=== PATIENT | male | born 1980 | race Caucasian/White ===

== ENCOUNTER 2023-03-06 16:06 | Observation (INO) | payer OTHER ==
[2023-03-06] MEDS ORDERED: SODIUM CHLORIDE 0.9% 500 ML 500 ML IV STA (16:26)
[2023-03-06] MEDS ORDERED: ASPIRIN 81 MG PO STA (16:26)
[2023-03-06 17:00] LABS: Basophils % (A) 0 %; Eosinophils # (A) 0.2 k/uL (0-0.7); Eosinophils % (A) 2 %; HCT 44.6 % (39.0-53.0); HGB 15.2 gm/dL (13.0-17.5); Lymphocytes # (A) 1.7 k/uL (1.0-4.8); Lymphocytes % (A) 24 %; MCH 30.3 pg (25.0-35.0); MCHC 34.1 g/dL (31.0-37.0); Mean Platelet Volume 7.1; Monocytes # (A) 0.4 k/uL (0-1.0); Monocytes % (A) 5 %; Neutrophils # (A) 4.6 k/uL (1.3-7.7); Neutrophils % (A) 66 %; Platelet Count 262 k/uL (150-450); RBC 5.01 m/uL (4.30-5.90); RDW 12.6 % (11.5-15.5); WBC 6.9 k/uL (3.8-10.6)
[2023-03-06 17:10] LABS: Partial Thromboplastin Time 27.4 sec (22.0-30.0); Prothrombin Time 11.1 sec (10.0-12.5)
[2023-03-06 17:14] LABS: ALT 29 U/L (4-49); AST 26 U/L (17-59); African American GFR (CKD) >90 (>60 ml/min/1.73 sqM); Albumin 4.3 g/dL (3.5-5.0); Alkaline Phosphatase 60 U/L (38-126); Amylase 61 U/L (30-110); Anion Gap 9 mmol/L; Blood Urea Nitrogen 18 mg/dL (9-20); Calcium 9.3 mg/dL (8.4-10.2); Carbon Dioxide 29 mmol/L (22-30); Chloride 100 mmol/L (98-107); Glucose 107 mg/dL (74-99); Lipase 87 U/L (23-300); Magnesium 1.9 mg/dL (1.6-2.3); Non-African American GFR(CKD) >90 (>60 ml/min/1.73 sqM); Potassium 3.6 mmol/L (3.5-5.1); Sodium 138 mmol/L (137-145); Total Bilirubin 0.8 mg/dL (0.2-1.3); Total Protein 7.1 g/dL (6.3-8.2)
--- NOTE | 2023-03-06 17:21 | XR ---
EXAMINATION TYPE: XR chest 2V DATE OF EXAM: 03/06/2023 COMPARISON: None INDICATION: Chest pain TECHNIQUE: Frontal and lateral views of the chest are obtained. FINDINGS: The heart size is normal. The pulmonary vasculature is normal. The lungs are clear. IMPRESSION: 1. No acute pulmonary process.
[2023-03-06] MEDS ORDERED: NALOXONE 0.4 MG/ML 1 ML VIAL IV PRN (17:59)
--- NOTE | 2023-03-06 18:09 | ED ---
Chest Pain HPI - General Chief Complaint: Chest Pain Stated Complaint: Chest Pain Time Seen by Provider: 03/06/23 16:18 Source: patient Mode of arrival: ambulatory Limitations: no limitations - History of Present Illness Initial Comments: 42-year-old male presenting with chief complaint of chest pain. Patient states that for several days he has had burning epigastric pain which she attributed to GERD. He has been taking his omeprazole without relief. Today the burning sensation and traveled into his chest up his neck and into his teeth. Pain is i ntermittent. Patient is not a smoker. No history of hypertension, hyperlipidemia, or diabetes. Patient does have family history of heart disease. No alleviating or aggravating factors. No nausea, vomiting, shortness of breath, palpitations, numbness, tingling, weakness. - Related Data Home Medications Medication Instructions Recorded Confirmed Omeprazole 20 mg PO DAILY 03/06/23 03/06/23 Allergies Allergy/AdvReac Type Severity Reaction Status Date / Time No Known Allergies Allergy Verified 03/06/23 18:17 Review of Systems ROS Statement: Those systems with pertinent positive or pertinent negative responses have been documented in the HPI. ROS Other: All systems not noted in ROS Statement are negative. EKG Findings - EKG Comments: EKG Findings:: Sinus rhythm ventricular rate 67. RI interval 204. QRS 126. Q- T 378. QTC 394. Past Medical History Past Medical History: No Reported History, Eye Disorder Additional Past Medical History / Comment(s): Cataracts, retina issues History of Any Multi-Drug Resistant Organisms: None Reported Additional Past Surgical History / Comment(s): cataract surgery Past Psychological History: No Psychological Hx Reported Smoking Status: Never smoker Past Alcohol Use History: Occasional Past Drug Use History: None Reported General Exam Limitations: no limitations General appearance: alert, in no apparent distress Head exam: Present: atraumatic, normocephalic, normal inspection Eye exam: Present: normal appearance, EOMI Neck exam: Present: normal inspection, full ROM Respiratory exam: Present: normal lung sounds bilaterally. Absent: respiratory distress, wheezes, rales, rhonchi, stridor Cardiovascular Exam: Present: regular rate, normal rhythm, normal heart sounds. Absent: systolic murmur, diastolic murmur, rubs, gallop, clicks Extremities exam: Present: normal inspection. Absent: pedal edema Neurological exam: Present: alert, oriented X3 Psychiatric exam: Present: normal affect, normal mood Skin exam: Present: warm, dry, intact, normal color. Absent: rash Course Vital Signs 03/06/23 03/06/23 16:11 19:40 Temperature 98.5 F Pulse Rate 77 67 Respiratory 18 18 Rate Blood Pressure 153/103 134/89 O2 Sat by Pulse 97 98 Oximetry Chest Pain MDM - MDM Was pt. sent in by a medical professional or institution (ANIA Cramer, HEAD OF IT, urgent care, hospital, or [facility]...) When possible be specific @ -No Did you speak to anyone other than the patient for history (EMS, parent, family, police, friend...)? What history was obtained from this source @ -No Did you review nursing and triage notes (agree or disagree)? Why? @ -I reviewed and agree with nursing and triage notes Were old charts reviewed (outside hosp., previous admission, EMS record, old EKG, old radiological studies, urgent care reports/EKG's, [facility] records)? Report findings @ -No old charts were reviewed Differential Diagnosis (chest pain, altered mental status, abdominal pain women, abdominal pain men, vaginal bleeding, weakness, fever, dyspnea, syncope, headache, dizziness, GI bleed, back pain, seizure, CVA, palpatations, mental health, musculoskeletal)? @ -[facility] Differential Chest Pain: Stable Angina, Unstable Angina, STEMI, NSTEMI Aortic Dissection, Pneumothorax, Musculoskeletal, Esophageal Spasm GERD, Cholecystitis, Pancreatitis, Zoster This is not meant to be an all-inclusive list. EKG interpreted by me (3pts min.). @ -As above X-rays interpreted by me (1pt min.). @ -Chest X-ray shows no acute process CT interpreted by me (1pt min.). @ -None done U/S interpreted by me (1pt. min.). @ -None done What testing was considered but not performed or refused? (CT, X-rays, U/S, labs)? Why? @ -None What meds were considered but not given or refused? Why? @ -None Did you discuss the management of the patient with other professionals (professionals i.e. ANIA Cramer, HEAD OF IT, lab, RT, psych nurse, social work supervisor, spoon maker, teacher, credit control officer, disease case manager rn)? Give summary @ -I spoke with Dr. Frye who accepted admission Was smoking cessation discussed for >3mins.? @ -No Was critical care preformed (if so, how long)? @ -No Were there social determinants of health that impacted care today? How? (Homelessness, low income, unemployed, alcoholism, drug addiction, transporta tion, low edu. Level, literacy, decrease access to med. care, detention, rehab)? @ -No Was there de-escalation of care discussed even if they declined (Discuss DNR or withdrawal of care, Hospice)? DNR status @ -No What co-morbidities impacted this encounter? (DM, HTN, Smoking, COPD, CAD, Cancer, CVA, ARF, Chemo, Hep., AIDS, mental health diagnosis, sleep apnea, morbid obesity)? @ -None Was patient admitted / discharged? Hospital course, mention meds given and route, prescriptions, significant lab abnormalities, going to OR and other pertinent info. @ -42-year-old male presenting with chief complaint of burning epigastric pain with radiation into the chest as well as into the jaw and teeth. History and physical are conducted. Workup is essentially negative. Given the character of this pain patient will be admitted for observation with evaluation by cardiology in the morning. Patient is agreeable to this plan. I discussed this case with my attending Dr. Perez. Undiagnosed new problem with uncertain prognosis? @ -No Drug Therapy requiring intensive monitoring for toxicity (Heparin, Nitro, Insulin, Cardizem)? @ -No Were any procedures done? @ -No Diagnosis/symptom? @ -Chest pain Acute, or Chronic, or Acute on Chronic? @ -Acute Uncomplicated (without systemic symptoms) or Complicated (systemic symptoms)? @ -Complicated Side effects of treatment? @ -No Exacerbation, Progression, or Severe Exacerbation? @ -No Poses a threat to life or bodily function? How? (Chest pain, [place], [place], pneumonia, PE, COPD, DKA, ARF, appy, cholecystitis, CVA, Diverticulitis, Homicidal, Suicidal, threat to staff... and all critical care pts) @ -yes Disposition Clinical Impression: Chest pain Disposition: ADMITTED IP TO THIS [facility] Condition: Fair Time of Disposition: 18:09
[2023-03-06 22:48] VITALS: RESP 16
[2023-03-07] MEDS ORDERED: ONDANSETRON 4 MG/2 ML VIAL IVP PRN (01:40)
[2023-03-07] MEDS ORDERED: MELATONIN 3 MG TABLET PO PRN (01:40)
[2023-03-07] MEDS ORDERED: ACETAMINOPHEN TAB 325 MG TAB PO PRN (01:40)
[2023-03-07] MEDS ORDERED: ALPRAZolam 0.25 MG TAB PO PRN (01:40)
[2023-03-07] MEDS ORDERED: MAG HYDROX/AL HYDROX/SIMETH 30 ML CUP PO PRN (01:40)
--- NOTE | 2023-03-07 01:43 | P.HPIM ---
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 It was not associated with any nausea vomiting profuse sweating dizziness lightheadedness palpitations or shortness of breath. Patient grew concerned and said to come the hospital to get checked. He denies any recent travel her hospital stay denies any history of blood clots he denies any cardiac history he denies any history of cardiac workup. He denies any known sick contact denies any upper respiratory infection symptoms. Patient does report history of heart disease and has paternal grandpa Denies tobacco smoking illicit drugs or heavy alcohol review of systems Pertinent positives as noted in HPI. All other systems were reviewed and are negative on exam Constitutional: No acute distress, conversant, pleasant Eyes: Anicteric sclerae, moist conjunctiva, Pupils equal round reactive to light ENMT: NC/AT Oropharynx clear, no erythema, or exudates Neck: Supple, no masses, or JVD No carotid bruits No thyromegaly Lungs: Clear to auscultation Clear to percussion Normal respiratory effort, no accessory muscle use Cardiovascular: Heart regular in rate and rhythm, No murmurs, gallops, or rubs No peripheral edema Abdominal: Soft Nontender, no guarding, rebound or rigidity Abdomen moving with respiration Normoactive bowel sounds No hepatomegaly, No splenomegaly No palpable mass No abdominal wall hernia noted Extremities: No digital cyanosis No clubbing Pedal pulses intact and symmetrical Radial pulses intact and symmetrical No calf tenderness Psychiatric: Alert and oriented to person, place and time Appropriate affect fair judgement Neuro Muscles Strength 5/5 in all 4 extremities Sensation to light touch grossly present throughout Cranial nerves II-XII grossly intact Lymphatics: no palpable cervical or supraclavicular lymph nodes Past Medical History Past Medical History: No Reported History, Eye Disorder Additional Past Medical History / Comment(s): Cataracts, retina issues History of Any Multi-Drug Resistant Organisms: None Reported Additional Past Surgical History / Comment(s): cataract surgery Past Psychological History: No Psychological Hx Reported Smoking Status: Never smoker Past Alcohol Use History: Occasional Past Drug Use History: None Reported Medications and Allergies Home Medications Medication Instructions Recorded Confirmed Type Omeprazole 20 mg PO DAILY 03/06/23 03/06/23 History Allergies Allergy/AdvReac Type Severity Reaction Status Date / Time No Known Allergies Allergy Verified 03/06/23 18:17 Physical Exam Vitals: Vital Signs Temp Pulse Pulse Resp BP BP Pulse Ox 03/06/23 21:34 97.8 F 60 16 146/86 98 03/06/23 19:40 67 18 134/89 98 03/06/23 16:11 98.5 F 77 18 153/103 97 Intake and Output 03/06/23 03/06/23 03/07/23 14:59 22:59 06:59 Other: # Voids 1 Weight 90.718 kg Results CBC & Chem 7: 03/06/23 16:54 03/06/23 16:54 Labs: Abnormal Lab Results - Last 24 Hours (Table) 03/06/23 Range/Units 16:54 Glucose 107 H (74-99) mg/dL Thrombosis Risk Factor Assmnt - Choose All That Apply Any of the Below Risk Factors Present?: Yes Each Factor Represents 1 point: Age 41-60 years, Obesity (BMI >25) Other Risk Factors: No Other congenital or acquired thrombophilia - If yes, enter type in comment: No Thrombosis Risk Factor Assessment Total Risk Factor Score: 2 Thrombosis Risk Factor Assessment Level: Low Risk Assessment and Plan Assessment: 42-year-old female no significant past medical history coming in with retrosternal chest pressure concerns regarding underlying cardiac disease I discussed the case with the ED doctor accepted the admission for atypical chest pain with anticipated length of stay less than 2 midnights Atypical chest pain Troponin negative 2, continue to trend EKG no acute ST changes Cardiac consult Vital signs stable Cardiac monitoring Aspirin 81 mg daily by mouth Check lipid profile Check A1c Chest x-ray shows no acute pathology Blood work unremarkable lumen 15.2 white count 6.9 Sodium 138 potassium 3.6 BUN 18 creatinine 0.86 Full code DVT prophylaxis Lovenox 40 mg subcu daily GI prophylaxis 40 mg Protonix by mouth daily
[2023-03-07] MEDS: PANTOPRAZOLE 40 MG TABLET PO SCH (05:38)
[2023-03-07] MEDS: ASPIRIN 81 MG PO SCH (08:14)
[2023-03-07] MEDS: ENOXAPARIN 40 MG/0.4 ML SYRINGE SQ SCH (08:14)
[2023-03-07 09:52] LABS: Chol/HDL Ratio 3.89 Ratio; LDL Cholesterol,Calculated 102.6 mg/dL (0.0-131.0); VLDL Calculation 19.96 mg/dL (5.00-40.00)
--- NOTE | 2023-03-07 14:13 | P.PN ---
Subjective Progress Note Date: 03/07/23 42-year-old male no significant past medical history Patient coming in complaining of several days of epigastric abdominal pain which he thought was heartburn. However today he felt the pain extending upwards retrosternally felted like pressure. It was not associated with any nausea, vomiting, profuse sweating, lightheadedness, palpitations or shortness of breath. CO in his grandfather in his 50s. Does not smoker cigarettes. In the ED he underwent extensive evaluation: Vital signs stable. CBC unremarkable. INR 1.0. CMP glu 107. Troponin < 0.012. Amylase and Lipase negative. EKG sinus rhythm. Admitted for chest pain, rule out ACS, Cardiology consultation. 03/07 Patient was seen and examined. Reports persistent chest discomfort that improves with movement and activity. Troponin < 0.012 x 3. A1c 5.1. Lipid panel LDL 102.6. Pending cardiology evaluation. General: non toxic, no distress, appears at stated age Derm: warm, dry Head: atraumatic, normocephalic, symmetric Eyes: EOMI, no lid lag, anicteric sclera Mouth: no lip lesion Cardiovascular: S1S2 reg, no murmur Lungs: CTA bilateral, no rhonchi, no rales , no accessory muscle use Ext: no gross muscle atrophy, no edema, no contractures Neuro: no focal neuro deficits Psych: Alert, oriented, appropriate affect Based on my assessment of this patient, this patient meets a moderate complexity level of care. Patient has a new diagnosis of chest pain with uncertain prognosis. Atypical chest pain: Troponins trended, ACS ruled out. ASA 81 mg PO QD. Telemetry monitoring. Cardiology consulted. CODE STATUS: FULL CODE DVT Prophylaxis: Lovenox GI Prophylaxis: Protonix Designated medical POA if patient is not able to make medical decisions for themselves: I have reviewed the following systems consultant notes: I have reviewed the results of the following tests: A1c. Lipid panel. Trop I have ordered the following tests: Echo. I have discussed the care of this patient with the following independent historian: I have independently interpreted the following test below: I have discussed the management of this patient with the following physician: Objective - Vital Signs Vital signs: Vital Signs Temp 97.5 F L 03/07/23 07:00 Pulse 58 L 03/07/23 07:00 Resp 16 03/07/23 07:00 BP 131/89 03/07/23 07:00 Pulse Ox 99 03/07/23 07:00 FiO2 Intake & Output 03/06/23 03/07/23 03/07/23 18:59 06:59 18:59 Weight 90.718 kg Other: # Voids 1 3 # Bowel Movements 0 - Labs CBC & Chem 7: 03/06/23 16:54 03/06/23 16:54 Labs: Abnormal Lab Results - Last 24 Hours (Table) 03/06/23 Range/Units 16:54 Glucose 107 H (74-99) mg/dL
--- NOTE | 2023-03-07 17:35 | P.CRDCN ---
History of Present Illness Consult date: 03/07/23 History of present illness: HISTORY OF PRESENTING ILLNESS 42-year-old with no significant past medical history and not taking any medications. He denies any smoking history, regress her to use history R any heavy alcohol use history. He denies any family history of premature coronary artery disease or sudden cardiac . Patient reports for last 3 weeks he has been next. In setting on and off epigastric and lower chest heaviness and acid reflux symptoms. He has been taking omeprazole which was initially helping but lately his symptoms have not been getting better. 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 His ECG shows sinus rhythm with no significant ST-T wave changes diagnostic for ischemia next and he is hemodynamics stable with normal blood pressure and heart rate, BP 130/70, heart rate 56 His lab shows a creatinine 0.8, hemoglobin 15 troponin 3 was negative REVIEW OF SYSTEMS 14 point review of system is negative except what is mentioned above in HPI. PHYSICAL EXAMINATION Vital signs reviewed. Head: Normocephalic. Eyes: Sclerae nonicteric. Neck: Brisk carotid upstroke, no jugular venous distention. Lungs: Clear to auscultation. Heart: Regular rate and rhythm, S1-S2, no S3, no murmur or rub. Abdomen: Soft nontender, positive bowel sounds no organomegaly. Extremities: No edema, intact distal pulses. Neuro: Alert, oritented, no focal deficits ASSESSMENT Atypical chest pain Intermediate pretest probability for coronary artery disease due to patient's age LDL 102, HDL 42, TG 165 PLAN Obtain a treadmill stress echocardiogram Obtain resting echocardiogram Based on the results with give further recommendations. If test is normal, patient is cleared to be discharged from cardiac vessel standpoint. Recommend once outpatient follow-up with Dr. Braxton to go over the symptomatology and resukts Past Medical History Past Medical History: No Reported History, Eye Disorder Additional Past Medical History / Comment(s): Cataracts, retina issues History of Any Multi-Drug Resistant Organisms: None Reported Additional Past Surgical History / Comment(s): cataract surgery Past Psychological History: No Psychological Hx Reported Smoking Status: Never smoker Past Alcohol Use History: Occasional Past Drug Use History: None Reported Medications and Allergies Home Medications Medication Instructions Recorded Confirmed Type Omeprazole 20 mg PO DAILY 03/06/23 03/06/23 History Allergies Allergy/AdvReac Type Severity Reaction Status Date / Time No Known Allergies Allergy Verified 03/06/23 18:17 Physical Exam Vitals: Vital Signs Temp Pulse Pulse Resp BP BP Pulse Ox 03/07/23 14:38 98.0 F 58 L 16 137/83 97 03/07/23 07:00 97.5 F L 58 L 16 131/89 99 03/07/23 02:00 63 16 127/79 98 03/07/23 01:22 16 03/06/23 21:34 97.8 F 60 16 146/86 98 03/06/23 19:40 67 18 134/89 98 Intake and Output 03/07/23 03/07/23 03/07/23 06:59 14:59 22:59 Other: # Voids 1 3 # Bowel Movements 0 Results 03/06/23 16:54 03/06/23 16:54 Cardiac Enzymes 03/06/23 03/07/23 Range/Units 21:11 00:17 Troponin I <0.012 <0.012 (0.000-0.034) ng/mL Lipids 03/07/23 Range/Units 06:28 Triglycerides 99.80 (0.00-149.00) mg/dL Cholesterol 165.00 (0.00-200.00) mg/dL HDL Cholesterol 42.40 (40.00-60.00) mg/dL Cholesterol/HDL Ratio 3.89 Ratio Current Medications Generic Name Dose Route Start Last Admin Trade Name Freq PRN Reason Stop Dose Admin Acetaminophen 650 mg 03/07/23 01:40 Acetaminophen Tab 325 Mg Tab PO Q6HR PRN Mild Pain or Fever > 100.5 Al Hydroxide/Mg Hydroxide 15 ml 03/07/23 01:40 Mag Hydrox/Al Hydrox/Simeth 30 Ml Cup PO Q6HR PRN Indigestion Alprazolam 0.25 mg 03/07/23 01:40 Alprazolam 0.25 Mg Tab PO Q6HR PRN Anxiety Aspirin 81 mg 03/07/23 09:00 03/07/23 08:14 Aspirin 81 Mg PO 81 mg DAILY AR Administration Enoxaparin Sodium 40 mg 03/07/23 09:00 03/07/23 08:14 Enoxaparin 40 Mg/0.4 Ml Syringe SQ 40 mg DAILY AR Administration Melatonin 3 mg 03/07/23 01:40 Melatonin 3 Mg Tablet PO HS PRN Insomnia Naloxone HCl 0.2 mg 03/06/23 17:59 Naloxone 0.4 Mg/Ml 1 Ml Vial IV Q2M PRN Opioid Reversal Ondansetron HCl 4 mg 03/07/23 01:40 Ondansetron 4 Mg/2 Ml Vial IVP Q8HR PRN Nausea And Vomiting Pantoprazole Sodium 40 mg 03/07/23 07:30 03/07/23 05:38 Pantoprazole 40 Mg Tablet PO 40 mg [id number] AR Administration Intake and Output 03/07/23 03/07/23 03/07/23 06:59 14:59 22:59 Other: # Voids 1 3 # Bowel Movements 0 03/06/23 16:54 03/06/23 16:54
[2023-03-08] MEDS: PANTOPRAZOLE 40 MG TABLET PO SCH (06:24)
[2023-03-08] MEDS: ASPIRIN 81 MG PO SCH (07:59)
[2023-03-08] MEDS: ENOXAPARIN 40 MG/0.4 ML SYRINGE SQ SCH (07:59)
[2023-03-08 08:54] VITALS: BP 155/92; PULSE 59; TEMP 97.6
--- NOTE | 2023-03-08 10:46 | P.PN ---
Subjective HISTORY OF PRESENT ILLNESS: This is a 42-year-old male with no significant past medical history. Patient is admitted to the hospital secondary to chest pain. Patient examined this morning at the bedside. Patient denies any shortness of breath. He reports some mild discomfort on the left side of his ribs. Vital signs are stable. He is scheduled to undergo stress echocardiogram today. PHYSICAL EXAM: VITAL SIGNS: Reviewed. GENERAL: Well-developed in no acute distress. NECK: Supple. No JVD or thyromegaly LUNGS: Respirations even and unlabored. Lungs essentially clear to auscultation bilaterally. HEART: Regular rate and rhythm. S1 and S2 heard. EXTREMITIES: Normal range of motion. No clubbing or cyanosis. Peripheral pulses intact. No lower extremity edema ASSESSMENT: Chest pain, troponins negative 3 PLAN: Continue current cardiac medications 2-D echo has been ordered. Await results Patient to undergo stress echocardiogram today If negative, the patient may be discharged home today from a cardiac standpoint Nurse practitioner note has been reviewed by physician. Signing provider agrees with the documented findings, assessment, and plan of care. Objective - Vital Signs Vital signs: Vital Signs Temp 97.6 F 03/08/23 07:00 Pulse 59 L 03/08/23 07:00 Resp 16 03/08/23 07:00 BP 155/92 03/08/23 07:00 Pulse Ox 99 03/08/23 07:00 FiO2 Intake & Output 03/07/23 03/08/23 03/08/23 18:59 06:59 18:59 Other: # Voids 3 1 # Bowel Movements 0 - Labs CBC & Chem 7: 03/06/23 16:54 03/06/23 16:54
--- NOTE | 2023-03-08 11:40 | CA ---
Transthoracic Echo Report Name: Celio Sosa Age: 42 Gender: M : 1980 Exam Date: 03/08/2023 09:31 Exam Location: [place] [facility] Ht (in): 69 Wt (lb): 200 Ordering Physician: Romain Braxton MD ([id number]) Attending/Referring Phys: Marble Machine Operator Pam Bacon [facility] Procedure CPT: Indications: Chest Pain Cardiac Hx: Technical Quality: Fair Contrast 1: Total Dose (mL): Contrast 2: Total Dose (mL): MEASUREMENTS (Male / Female) Normal Values 2D ECHO LV Diastolic Diameter PLAX 5.0 cm 4.2 - 5.9 / 3.9 - 5.3 cm LV Systolic Diameter PLAX 3.7 cm IVS Diastolic Thickness 1.0 cm 0.6 - 1.0 / 0.6 - 0.9 cm LVPW Diastolic Thickness 1.0 cm 0.6 - 1.0 / 0.6 - 0.9 cm LV Relative Wall Thickness 0.4 M-MODE Aortic Root Diameter MM 2.7 cm LA Systolic Diameter MM 3.8 cm LA Ao Ratio MM 1.4 AV Cusp Separation MM 2.4 cm DOPPLER AV Peak Velocity 114.4 cm/s AV Peak Gradient 5.2 mmHg AV Mean Velocity 85.5 cm/s AV Mean Gradient 3.1 mmHg AV Velocity Time Integral 26.0 cm LVOT Peak Velocity 101.6 cm/s LVOT Peak Gradient 4.1 mmHg LVOT Velocity Time Integral 22.1 cm Mitral E Point Velocity 52.7 cm/s Mitral A Point Velocity 60.4 cm/s Mitral E to A Ratio 0.9 MV Deceleration Time 208.7 ms LV E' Lateral Velocity 11.2 cm/s Mitral E to LV E' Lateral Ratio 4.7 LV E' Septal Velocity 11.6 cm/s Mitral E to LV E' Septal Ratio 4.6 TR Peak Velocity 205.2 cm/s TR Peak Gradient 16.8 mmHg Right Atrial Pressure 3.0 mmHg Pulmonary Artery Systolic Pressu 19.8 mmHg Right Ventricular Systolic Press 19.8 mmHg FINDINGS Left Ventricle Left ventricular wall thickness at upper limits of normal. Left ventricular cavity size normal. Low normal left ventricular systolic function. Left ventricular ejection fraction is estimated at 50-55%. Hypokinetic inferior wall. Hypokinetic basal inferoseptum. Right Ventricle Moderate right ventricular dilatation. Right Atrium Severe right atrial dilatation. Left Atrium Left atrial size at the upper limits of normal. Mitral Valve Structurally normal mitral valve. No mitral regurgitation. Aortic Valve Trileaflet aortic valve. No aortic regurgitation. Tricuspid Valve Structurally normal tricuspid valve. Trace tricuspid regurgitation. Pulmonic Valve Structurally normal pulmonic valve. Trace pulmonic regurgitation. Pericardium No pericardial effusion. Aorta Normal size aortic root. CONCLUSIONS Normal LV systolic function Previewed by: Dr. Mian Horn MD (Electronically Signed) Final Date: 08 March 2023 11:40
--- NOTE | 2023-03-08 11:42 | CA ---
Stress Echo Report Celio Sosa Age: 42 Gender: M : 1980 Exam Date: 03/08/2023 09:42 Exam Location: [facility] Ht (in): 69 Wt (lb): 200 Ordering Physician: Romain Braxton MD ([id number]) Referring Physician: Uday, Welder And Fitter: Pam LARA Technologist Procedure CPT: Indication: Chest Pain ICD-9 Codes: Rhythm: Patient History: CHEST PAIN Cardiac Medications: Medications in past 24 hours: Contrast: Stress Results Protocol: Tyler Total dose(mL): Exercise Duration (min:sec): 13:[address] Depression (mm): Angina Score: Pryor Score: METS: 13.3 Resting HR: 90 Resting BP: 131 / 84 Peak HR: 171 Peak BP: 209 / 102 Max Predicted HR: 176 97 % Max Predicted HR Target HR: 150 Double Product: [id number] Stress Summary: BP Response: Reason for Termination: MAX EXERTION/TARGET HR Cardiac Symptoms: NO SYMPTOMS ECG Analysis Resting ECG: Stress ECG: Arrhythmia: Echo Analysis Resting Echo: Peak Echo Analysis: MEASUREMENTS (Male/Female) Normal Values CONCLUSIONS Excellent exercise tolerance Normal EKG and echocardiogram in response to exercise Dr. Mian Horn MD (Electronically Signed) Final Date: 08 March 2023 11:41
--- NOTE | 2023-03-08 15:58 | P.DS ---
Providers Date of admission: 03/06/23 17:34 Expected date of discharge: 03/08/23 Attending physician: Toy Frye MD Primary care physician: Florencio Herrera Hospital Course: Atypical chest pain Hospital Course: 42-year-old male no significant past medical history presented with several days of epigastric abdominal pain which he thought was heartburn. In the ED he underwent extensive evaluation: Vital signs stable. CBC unremarkable. INR 1.0. CMP glu 107. Troponin < 0.012. Amylase and Lipase negative. EKG sinus rhythm. Admitted for chest pain, rule out ACS, Cardiology consultation. 03/07 Patient was seen and examined. Reports persistent chest discomfort that improves with movement and activity. Troponin < 0.012 x 3. A1c 5.1. Lipid panel LDL 102.6. Pending cardiology evaluation. 03/08 Patient had been seen and cleared by cardiology. Underwent stress test which was negative for reversible ischemia. D/c'd home with no medication changes. Gen: awake, alert HEENT: normocephalic, atraumatic, good hearing acuity, moist mucous membranes Resp: good air exchange, breathing comfortably with no accessory muscle use CVS: good distal perfusion x 4, GI: soft, NTTP, ND : no SPT, no CVAT, caban catheter not present MSK: no pitting edema, no clubbing Neuro: non-focal, moving all extremities Psych: cooperative, euthymic mood Patient Condition at Discharge: Good Plan - Discharge Summary Discharge Rx Participant: No New Discharge Prescriptions: New Acetaminophen Tab [Tylenol] 650 mg PO Q6HR PRN tab PRN Reason: Mild Pain Or Fever > 100.5 Continue Omeprazole 20 mg PO DAILY Discharge Medication List Omeprazole 20 mg PO DAILY 03/06/23 [History] Acetaminophen Tab [Tylenol] 650 mg PO Q6HR PRN tab 03/08/23 [Rx] Follow up Appointment(s)/Referral(s): Roger Barker DO [STAFF PHYSICIAN] - 1 Week (Please keep previously scheduled cardiology appointment.) Florencio Herrera MD [Primary Care Provider] - 1-2 days Patient Instructions/Handouts: Chest Pain (DC) Discharge Disposition: HOME SELF-CARE
== END 2023-03-08 14:32 | disposition home or self-care (01) ==
LOC: EC 16:06 → 6NMEDSUR 17:34
PROVIDERS: ADMIT Family Medicine; ATTEND Family Medicine
DX: R07.89 Other chest pain (principal); R10.13 Epigastric pain; R68.84 Jaw pain; K08.89 Other specified disorders of teeth and supporting structures; K21.9 Gastro-esophageal reflux disease without esophagitis; E66.9 Obesity, unspecified; Z68.29 Body mass index [BMI] 29.0-29.9, adult; Z79.899 Other long term (current) drug therapy; Z98.49 Cataract extraction status, unspecified eye; Z82.49 Family history of ischemic heart disease and other diseases of the circulatory system
CPT/HCPCS: 96361 ×2; 96372 ×2; 96360; 99285; 36415; 93005; 93306; 93351; 80061; 80053; 82150; 83690; 83735; 84484 ×2; 85025; 85610; 85730; 83036; 71046; G0378 ×3; J1650 ×2

== ENCOUNTER → 2023-03-16 | Outpatient (CLI) | payer OTHER ==
--- NOTE | 2023-03-21 17:10 | CT ---
EXAMINATION TYPE: CT angio chest DATE OF EXAM: 03/16/2023 COMPARISON: Radiograph 03/06/2023 HISTORY: 42-year-old male R07.89 Epigastric pain that radiated to sternal chest pain, onset 6-8 weeks TECHNIQUE: Contiguous axial scanning of the chest after the administration of 100 cc mL of Isovue 370 . Coronal/sagittal MIP reconstructions performed. 3-D reconstructions generated on a dedicated [employer] workstation. CT DLP: 967.6mGycm. Automatic exposure control utilized for a dose reduction. FINDINGS: The heart is normal size without pericardial effusion. Aortic root mildly aneurysmal at 4.0 cm. Ascending aorta is ectatic at 3.8 cm. Conventional arch vessel branching anatomy. Descending thoracic aorta normal caliber. No evidence for aortic dissection. No thoracic lymphadenopathy by CT size criteria. Mild diffuse bronchial wall thickening. No consolidation or pleural effusion.. 3 mm posterior left lower lobe pulmonary nodule, axial image 36. No consolidation or pleural effusion . Visualized upper abdomen shows anterior splenule. Bones: Some degenerative change at the sternomanubrial joint. No osseous destructive process. IMPRESSION: 1. 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 Ectatic ascending aorta 3.8 cm. 2. Mild bronchial wall thickening could reflect bronchitis or asthma. 3. Tiny 3 mm left upper lobe pulmonary nodule incidentally seen. A 12 month follow-up could reassess. Follow up recommendation based on Fleischner Society guidelines.
== END | disposition home or self-care (01) ==
LOC: RADCTMAIN 15:05
PROVIDERS: ATTEND Family Medicine
DX: J98.09 Other diseases of bronchus, not elsewhere classified (principal); R91.1 Solitary pulmonary nodule; R07.89 Other chest pain; R10.13 Epigastric pain
CPT/HCPCS: 71275; Q9967

== ENCOUNTER → 2023-10-11 | Outpatient (CLI) | payer OTHER ==
--- NOTE | 2023-10-12 09:22 | CT ---
EXAMINATION TYPE: CT angio chest CT DLP: 829.1 mGycm, Automated exposure control for dose reduction was used. DATE OF EXAM: 10/11/2023 4:06 PM COMPARISON: CTA chest 03/16/2023. CLINICAL INDICATION:Male, 43 years old with history of I71.21 ANEURYSM OF THE ASCENDING AORTA, WITHOU T RU; 6 Month follow up on mild thoracic aneurysm TECHNIQUE/CONTRAST: CTA scan of the thorax is performed without and with IV Contrast, patient injected with 100 ml mL of Isovue 370. MIP and 3-D images are created and reviewed. FINDINGS: Lungs/Pleura: No evidence of focal consolidation, pleural effusion or pneumothorax. Stable left upper lobe 3 mm posterior left upper lobe pulmonary nodule (series 7, image 38). No new or enlarging pulmo nary nodules. Airway: Large airways are patent. Heart: Heart is within normal limits for size. No pericardial effusion. Small coronary artery calcifi cations. Vasculature: Conventional three-vessel aortic arch. No evidence for aortic dissection or intramural h ematoma. Stable aortic root aneurysm dilatation of 4.0 cm. The ascending thoracic aorta measures up t o 3.7 cm. The descending thoracic aorta measures up to 2.4 cm. Mediastinum: No evidence of adenopathy. Musculoskeletal: No acute osseous abnormalities Soft Tissues: Unremarkable. Lower neck: No significant findings. Upper Abdomen: No significant findings. IMPRESSION: Stable mild aneurysmal dilatation of the aortic root measuring up to 4.0 cm.
== END | disposition home or self-care (01) ==
LOC: RADCTMAIN 15:30
PROVIDERS: ATTEND Family Medicine
DX: I71.21 Aneurysm of the ascending aorta, without rupture (principal)
CPT/HCPCS: 71275; Q9967